=== PATIENT | male | born 1995 | race Caucasian/White ===

== ENCOUNTER 2017-09-10 10:36 | Emergency (ER) | payer OTHER ==
[~2017-09-10] VITALS: Ht 175.3 cm; Wt 57.0 kg
--- NOTE | 2017-09-10 10:48 | PHYS DOC ---
Adult General Chief Complaint Chief Complaint: COUGH HPI HPI Patient is a 21-year-old male presenting to the emergency department for evaluation of cough congestion runny nose postnasal drip nausea vomiting diarrhea. Symptoms have been going on for approximately 2 weeks now as far as respiratory goes and the GI symptoms have been going on for 2-3 days. He has been traveling and was in [place]. He says the cough is productive of a yellowish sputum and he sometimes has bloody mucus coming from his nose. He has tried [id number] medications for his symptoms but they have not helped. He has had no fevers but feels chills. He denies any shortness of breath and he is in no obvious distress with normal vital signs. Review of Systems Review of Systems Constitutional: Denies fever. + chills [] Eyes: Denies change in visual acuity, redness, or eye pain [] HENT: + nasal congestion, sore throat [] Respiratory: + cough. No shortness of breath [] Cardiovascular: No additional information not addressed in HPI [] GI: Denies abdominal pain. + nausea, vomiting, diarrhea [] Musculoskeletal: Denies back pain or joint pain [] Integument: Denies rash or skin lesions [] All other systems were reviewed and found to be within normal limits, except as documented in this note. Physical Exam Physical Exam Constitutional: Well developed, well nourished, no acute distress, non-toxic appearance. [] HENT: Normocephalic, atraumatic, bilateral external ears normal, oropharynx moist, large amount of postnasal drip and bilateral rhinorrhea with boggy nasal turbinates Eyes: PERRLA, EOMI, conjunctiva normal, no discharge. [] Neck: Normal range of motion, no tenderness, supple, no stridor. [] Cardiovascular:Heart rate regular rhythm, no murmur [] Lungs & Thorax: Bilateral breath sounds diminished with rhonchi in left lower lobe and wheezing noted throughout Abdomen: Bowel sounds normal, soft, no tenderness, no masses, no pulsatile masses. [] Skin: Warm, dry, no erythema, no rash. [] EKG EKG [] Radiology/Procedures Radiology/Procedures [] Course & Med Decision Making Course & Med Decision Making Patient says that the GI symptoms are not too bad rather the coughing and respiratory symptoms he feels are getting worse. Given his abnormal lung sounds he'll be started on Zithromax to cover any possible atypical pneumonia. He will be given prednisone and albuterol and Tessalon. Patient told to follow with primary care provider within 2-3 days and come back to the ED sooner with worsening pain shortness of breath or other general concerns. Patient aware and agreeable with plan for discharge and verbalized understanding of the above instructions. Dragon Disclaimer Dragon Disclaimer This electronic medical record was generated, in whole or in part, using a voice recognition dictation system. Departure Departure: Impression: Primary Impression: URI (upper respiratory infection) Additional Impressions: Wheezing Nausea & vomiting Diarrhea Disposition: HOME, SELF-CARE Condition: STABLE Referrals: QASIM ZELAYA (PCP) Patient Instructions: Acute Bronchitis Additional Instructions: USE OTC NASONEX FOR YOUR CONGESTION. FOLLOW WITH YOUR PCP LATER THIS WEEK AND COME BACK WITH ANY NEW OR WORSENING CONCERNS. THANK YOU! Scripts Azithromycin (ZITHROMAX) 250 Mg Tablet 1 PKG PO UD, #6 TAB Prov: MARLEY WALKER DO 09/10/17 Ondansetron (ZOFRAN ODT) 4 Mg Tab.rapdis 1 TAB SL Q8HRS, #10 TAB Prov: MARLEY WALKER DO 09/10/17 Benzonatate (TESSALON PERLE) 100 Mg Capsule 1 CAP PO TID for COUGH, #15 CAP Prov: MARLEY WALKER DO 09/10/17 Prednisone (PREDNISONE) 50 Mg Tablet 1 TAB PO DAILY, #5 TAB Prov: MARLEY WALKER DO 09/10/17 Albuterol Sulfate (PROAIR HFA INHALER) 8.5 Gm Hfa.aer.ad 1 PUFF INH PRN Q6HRS Y for SHORTNESS OF BREATH, #1 INHALER 0 Refills Prov: MARLEY WALKER DO 09/10/17 Problem Qualifiers Primary Impression: URI (upper respiratory infection) URI type: unspecified URI Qualified Codes: J06.9 - Acute upper respiratory infection, unspecified MARLEY WALKER DO Sep 10, 2017 10:48
[2017-09-10] MEDS ORDERED: PRED50TA PO (11:25)
[2017-09-10] MEDS ORDERED: AZIT250T PO (11:25)
[2017-09-10] MEDS ORDERED: BENZ100C PO (11:25)
[2017-09-10] MEDS ORDERED: ALBU8.5H8 INH (11:25)
[2017-09-10] MEDS ORDERED: ONDA4TAB10 SL (11:25)
[2017-09-10 11:45] VITALS: BP 122/48
== END 2017-09-10 11:45 | disposition home or self-care (01) ==
LOC: ER 10:36
DX: J06.9 Acute upper respiratory infection, unspecified (principal); R11.2 Nausea with vomiting, unspecified; R19.7 Diarrhea, unspecified
CPT/HCPCS: 99283